=== PATIENT | female | born 1990 | race Caucasian/White ===

== ENCOUNTER 2018-12-14 07:30 | Day surgery (SDC) | payer BC ==
[~2018-12-14 07:30] MED LIST: Lactated Ringers 1,000 ML IV SCH; Lidocaine 1%/Sod Bicarbonate in NS 8.4% 1 ML Syringe IDERM PRN; Sodium Chloride 0.9% 10 ML Syringe FLUSH PRN
--- NOTE | 2018-12-14 07:57 | PCM.PREANE ---
Preanesthetic Assessment - Procedure Proposed Procedure: HYSTEROSCOPY - Anesthesia/Transfusion/Family Hx Anesthesia History: No Prior Anesthesia Family History of Anesthesia Reaction: No Transfusion History: No Prior Transfusion(s) - Review of Systems General: No Symptoms Pulmonary: No Symptoms Cardiovascular: No Symptoms Gastrointestinal: No Symptoms Neurological: No Symptoms Other: Reports: None - Physical Assessment NPO Status Date: 12/13/18 NPO Status Time: 21:00 O2 Sat by Pulse Oximetry: 100 Respiratory Rate: 16 Vital Signs: Last Vital Signs Temp 98.1 F 12/14/18 07:35 Pulse 74 12/14/18 07:35 Resp 16 12/14/18 07:35 BP 110/71 12/14/18 07:35 Pulse Ox 100 12/14/18 07:35 Height: 5 ft 4 in Weight: 52.4 kg ASA Class: 1 Mental Status: Alert & Oriented x3 Airway Class: Mallampati = 1 Dentition: Reports: Normal Dentition Thyro-Mental Finger Breadths: 3 Mouth Opening Finger Breadths: 3 ROM/Head Extension: Full Lungs: Clear to Auscultation, Normal Respiratory Effort Cardiovascular: Regular Rate, Regular Rhythm - Lab Values: Laboratory Last Values Urine HCG, Qual Negative (NEGATIVE) 12/14/18 07:35 - Allergies Allergies/Adverse Reactions: Allergies Allergy/AdvReac Type Severity Reaction Status Date / Time No Known Allergies Allergy Verified 12/13/18 15:16 - Blood Blood Available: No - Acknowledgements Anesthesia Type Planned: General Anesthesia, MAC Pt an Appropriate Candidate for the Planned Anesthesia: Yes Alternatives and Risks of Anesthesia Discussed w Pt/Guardian: Yes Pt/Guardian Understands and Agrees with Anesthesia Plan: Yes PreAnesthesia Questionnaire - Past Health History Medical/Surgical History: Denies Medical/Surgical History HEENT History: Reports: Impaired Vision Cardiovascular History: Reports: None Respiratory History: Reports: None Gastrointestinal History: Reports: None Oncologic (Cancer) History: Reports: None - SUBSTANCE USE Smoking Status *Q: Never Smoker Tobacco Use Within Last Twelve Months: No Second Hand Smoke Exposure: No Days Per Week of Alcohol Use: 1 (RARE) Recreational Drug Use History: No - HOME MEDS Home Medications: Home Meds Vits #93/Iron Fum/FA [ Formula Tablet] 1 tab PO DAILY 12/13/18 [History] - CURRENT (IN HOUSE) MEDS Current Meds: Current Medications Lactated Ringer's (Ringers, Lactated) 1,000 mls @ 125 mls/hr IV ASDIRECTED SABIHA Stop: 12/14/18 18:00 Lidocaine/Sodium Bicarbonate (Buffered Lidocaine 1% In Ns 8.4%) 0.25 ml IDERM ONETIME PRN PRN Reason: Prior to IV Start Stop: 12/14/18 18:00 Sodium Chloride (Saline Flush) 10 ml FLUSH ASDIRECTED PRN PRN Reason: Keep Vein Open Stop: 12/14/18 18:00
[2018-12-14] MEDS ORDERED: Lidocaine 1% 4 ML ONE (08:06)
[2018-12-14] MEDS ORDERED: Ondansetron 4 MG/2 ML SDV ONE (08:06)
[2018-12-14] MEDS ORDERED: Midazolam 1 MG/ML 2 ML SDV ONE (08:07)
[2018-12-14] MEDS ORDERED: Propofol 200 MG/20 ML SDV ONE ×2 (08:07→09:25)
[2018-12-14] MEDS ORDERED: fentaNYL 250 MCG/5 ML SDV ONE (08:07)
[2018-12-14] MEDS ORDERED: Lidocaine 1% 30 ML SDV ONE (08:23)
[2018-12-14] MEDS ORDERED: Iopamidol 612 MG/ML 50 ML SDV ONE (08:23)
[2018-12-14] MEDS ORDERED: Ketorolac 30 MG/ML SDV ONE (09:13)
[2018-12-14] MEDS ORDERED: ePHEDrine/Normal Saline 25 MG/5 ML Syringe ONE (09:17)
--- NOTE | 2018-12-14 09:51 | CR ---
Hysterosalpingogram: Seven fluoroscopic spot views were obtained utilizing C-arm device. Outline of the endometrial cavity is within normal limits. Minimal peritoneal spill is noted on the right side. No definite peritoneal spill is seen on the left side. Impression: 1. Findings as noted above. Diagnostic code #3
--- NOTE | 2018-12-14 09:54 | PCM48HPAN ---
Post Anesthesia Note - EVALUATION WITHIN 48HRS OF ANESTHETIC Vital Signs in Normal Range: Yes Patient Participated in Evaluation: Yes Respiratory Function Stable: Yes Airway Patent: Yes Cardiovascular Function Stable: Yes Hydration Status Stable: Yes Pain Control Satisfactory: Yes Nausea and Vomiting Control Satisfactory: Yes Mental Status Recovered: Yes Pulse Rate: 82 SaO2: 100 Resp Rate: 16 Temperature: 36.9 C Blood Pressure: 90/57 Pulse Rate: 82
--- NOTE | 2018-12-14 10:13 | PCM.OPNOTE ---
- General Post-Op/Procedure Note Date of Surgery/Procedure: 12/14/18 Operative Procedure(s): Attempted Hysteroscopy. HSG Findings: SVE with mobile, mid-positioned uterus. Cervix grossly normal on visual inspection. Unable to pass hysteroscope into uterine cavity. Webbing an additional tissue projections encountered in cervix and likely JAIME. Pre Op Diagnosis: Fertility testing Post-Op Diagnosis: Same Anesthesia Technique: MAC Primary Surgeon: Margie Vernon Anesthesia Provider: Lily Ngo Pathology: None Fluid Replacement, Intraop: 900 Output, Urine Amount: 0 (Voided prior to case) EBL in mLs: 10 Complications: None Condition: Good Free Text/Narrative:: The risks, benefits, indications, potential complications, and alternatives were explained to the patient and informed consent obtained. Patient was brought to the OR where anesthesia was induced without difficulty. She was placed in the dorsal lithotomy position and prepped and draped in the typical fashion. Sterile speculum placed in the vagina. Paracervical block placed with 1% lidocaine without epinephrine. Tenaculum placed on the anterior lip of the cervix. Attempt made to sound uterus, but unsuccessful due to tightening at the internal os. Bedside abdominal US utilized to visualize endometrial stripe and using this small Perez dilator able to be pushed into the uterine cavity. Uterus then able to be sequentially dilated up to a 19 Perez dilator relatively easily to what was felt to be level of fundus. Attempt was then made to pass a 5-mm hysteroscope, however, this was unsuccessful. Not able to make hysteroscope follow same path. Visualization with the hysteroscope showed webbing and tissue projections in the cervix and lower uterine segment. Given difficulties hysteroscope withdrawn and attempt then made to complete HSG. With gentle traction on the tenaculum, a cook catheter was advanced into the cervix and uterus. The speculum and tenaculum were removed. Next, ~30 cc of isoview contrast was injected through the catheter under direct fluoroscopy and several images were taken. Of note, a fair amount of force had to be placed on syringe to allow flow of contrast into the uterus. The uterus filled as did the left fallopian tube, however, left fallopian tube appeared dilated at several portions and no spill ever encountered . With much more force and after slightly longer time the right fallopian tube finally began to fill as well. Slight spill noted on this right side. Images sent to Radiology for formal interpretation. Once completed, the canula was removed. The patient was awoken and taken to PACU. Plan for course of doxycycline given no spill from left fallopian tube and only minimal spill from right fallopian tube. Will also need to coordinate further care with [facility]ESENIA team.
== END 2018-12-14 10:43 | disposition home or self-care (01) ==
LOC: JD.SDS 07:30
PROVIDERS: ATTEND Obstetrics & Gynecology
DX: Z31.41 Encounter for fertility testing (principal)
CPT/HCPCS: 36415; 58340; 58555; 74740; 80048; 81025; 85025; J1885; J2001; J2250; J2405; J2704; J3010; J7050; J7120; Q9967; 00952

== ENCOUNTER 2019-10-26 03:33 | Inpatient (IN) | payer BC ==
[~2019-10-26 03:33] MED LIST changes: +Bupivacaine 0.25% 10 ML SDV ONE; -Lactated Ringers 1,000 ML IV SCH; -Lidocaine 1%/Sod Bicarbonate in NS 8.4% 1 ML Syringe IDERM PRN; -Sodium Chloride 0.9% 10 ML Syringe FLUSH PRN
[2019-10-26] MEDS ORDERED: Misoprostol 100 MCG Tab VAG PRN (19:05)
[2019-10-26] MEDS ORDERED: Nalbuphine 10 MG/ML Syringe IVPUSH PRN (19:05)
[2019-10-26] MEDS ORDERED: Ondansetron 4 MG/2 ML SDV IVPUSH PRN (19:05)
[2019-10-26] MEDS ORDERED: Sodium Chloride 0.9% 10 ML Syringe FLUSH PRN (19:05)
--- NOTE | 2019-10-26 19:08 | PCM.LDHP ---
L&D History of Present Illness - General Date of Service: 10/26/19 Admit Problem/Dx: Patient Status Order with Admit Dx/Problem 10/26/19 19:05 Patient Status [ADT] Routine Admission Diagnosis/Problem Admission Diagnosis/Problem Normal in third trimester Source of Information: Patient History Limitations: Reports: No Limitations - History of Present Illness Introduction:: 28 y/o at 40 4/7 wks who presents for IOL. Doing well. Notes some runs of contractions. Nothing patterned. Notes good FM - Related Data Allergies/Adverse Reactions: Allergies Allergy/AdvReac Type Severity Reaction Status Date / Time No Known Allergies Allergy Verified 12/14/18 08:12 Home Medications: Home Meds Vits #93/Iron Fum/FA [ Formula Tablet] 1 tab PO DAILY 12/13/18 [History] Doxycycline [Vibramycin] 100 mg PO BID #10 cap 12/14/18 [Rx] Hydrocodone/Acetaminophen [[place] 5-325 Tablet] 1 - 2 each PO Q6HR PRN #10 tablet 12/14/18 [Rx] Past Medical History HEENT History: Reports: Impaired Vision - Past Surgical History Female Surgical History: Reports: Other (See Below) (hysteroscopy) Social & Family History - Tobacco Use Smoking Status *Q: Never Smoker - Caffeine Use Caffeine Use: Reports: Coffee - Alcohol Use Alcohol Use History: No - Recreational Drug Use Recreational Drug Use: No Drug Use in Last 12 Months: No H&P Review of Systems - Review of Systems: Review Of Systems: See Below General: Reports: No Symptoms Pulmonary: Reports: No Symptoms Cardiovascular: Reports: No Symptoms Gastrointestinal: Reports: No Symptoms Genitourinary: Reports: No Symptoms Musculoskeletal: Reports: No Symptoms Psychiatric: Reports: No Symptoms L&D Exam - Exam Exam: See Below - OB Specific Contraction Intensity: Irritability Movement: Active Heart Tones: Present Heart Tones per Min: 145 Heart Rate (FHR) Variability: Moderate (6-25 bmp) Presentation: Vertex - Fontaine Score Fontaine Score Cervix Position: Midposition Fontaine Score Consistency: Soft Fontaine Score Effacement: >80% Fontaine Score Dilation: 1-2 cm Fontaine Score 's Station: -2 Fontaine Score Total: 8 - Exam General: Alert, Oriented, Cooperative Lungs: Clear to Auscultation, Normal Respiratory Effort Cardiovascular: Regular Rate, Regular Rhythm GI/Abdominal Exam: Soft, Non-Tender Genitourinary: Normal external exam Extremities: Normal Inspection Skin: Warm, Dry, Intact - Patient Data Result Diagrams: 10/26/19 19:29 - Problem List (1) Postmaturity , 40-42 weeks gestation SNOMED Code(s): 10177221091352 ICD Code: O48.0 - POST-TERM Status: Acute Current Visit: Yes (2) Rh negative state in antepartum period SNOMED Code(s): 814525459 ICD Code: O26.899 - OTH RELATED CONDITIONS, UNSPECIFIED TRIMESTER; Z67.91 - UNSPECIFIED BLOOD TYPE, RH NEGATIVE Status: Acute Current Visit: Yes Problem List Initiated/Reviewed/Updated: Yes Orders Last 24hrs: Active Orders 24 hr Category Date Time Status Patient Status [ADT] Routine ADT 10/26/19 19:05 Ordered Activity as Tolerated [RC] PFP Care 10/26/19 19:05 Ordered Communication Order [RC] ASDIRECTED Care 10/26/19 19:05 Ordered Communication Order [RC] ASDIRECTED Care 10/26/19 19:05 Ordered Communication Order [RC] ASDIRECTED Care 10/26/19 19:05 Ordered Communication Order [RC] ASDIRECTED Care 10/26/19 19:05 Ordered Heart Tones [RC] ASDIRECTED Care 10/26/19 19:06 Ordered Monitoring [RC] INTERMITTENT Care 10/26/19 19:05 Ordered Non Stress Test [RC] PER UNIT ROUTINE Care 10/26/19 19:05 Ordered Notify Provider [RC] ASDIRECTED Care 10/26/19 19:05 Ordered Notify Provider [RC] PRN Care 10/26/19 19:05 Ordered Peripheral IV Care [RC] . DIRECTED Care 10/26/19 19:06 Ordered Vaginal Exam [RC] ASDIRECTED Care 10/26/19 19:05 Ordered Vital Signs [RC] ASDIRECTED Care 10/26/19 19:05 Ordered Regular Diet [DIET] Diet 10/26/19 Dinner Ordered CBC W/O DIFF,HEMOGRAM [HEME] Routine Lab 10/26/19 19:05 Ordered RAPID PLASMA REAGIN,RPR [CHEM] Routine Lab 10/26/19 19:05 Ordered TYPE AND SCREEN [BBK] Routine Lab 10/26/19 19:05 Ordered Lactated Ringers [Ringers, Lactated] 1,000 ml Med 10/26/19 19:15 Ordered IV ASDIRECTED Nalbuphine [Nubain] Med 10/26/19 19:05 Ordered 10 mg IVPUSH Q2H PRN Ondansetron [Zofran] Med 10/26/19 19:05 Ordered 4 mg IVPUSH Q4H PRN Oxytocin/Lactated Ringers [Pitocin in LR 10 Units/1,000 Med 10/26/19 19:15 Ordered ML] 10 unit in 1,000 ml IV .CONTINUOUS Oxytocin/Lactated Ringers [Pitocin in LR 10 Units/1,000 Med 10/26/19 19:15 Ordered ML] 10 unit in 1,000 ml IV TITRATE Sodium Chloride 0.9% [Saline Flush] Med 10/26/19 19:05 Ordered 10 ml FLUSH ASDIRECTED PRN miSOPROStoL [Cytotec] Med 10/26/19 19:05 Ordered 25 mcg VAG Q4H PRN Electronic Heart Tones Ext w TOCO [WOMSER] Oth 10/26/19 19:05 Ordered Routine Electronic Heart Tones Internal [WOMSER] Per Unit Oth 10/26/19 19:05 Ordered Routine Peripheral IV Insertion Adult [OM.PC] Routine Oth 10/26/19 19:05 Ordered Resuscitation Status Routine Resus Stat 10/26/19 19:05 Ordered Assessment/Plan Comment:: 28 y/o at 40 4/7 wks who presents for IOL for dates * Labs done * GBS negative * Cytotec for IOL, pitocin when able * Pain management per patient preference * Anticipate
[2019-10-26] MEDS ORDERED: Oxytocin/Lactated Ringers 10 UNIT/1,000 ML BAG IV SCH ×2 (19:15)
[2019-10-26] MEDS ORDERED: Misoprostol 25 MCG (1/4 of 100 MCG) Tab ONE (19:40)
[2019-10-26] MEDS ORDERED: fentaNYL 100 MCG/2 ML SDV EPIDUR PRN (21:16)
[2019-10-26] MEDS ORDERED: Bupivacaine/fentaNYL/NS 100 ML Bag EPIDUR PRN (21:16)
[2019-10-26] MEDS ORDERED: ePHEDrine 50 MG/ML SDV IVPUSH PRN (21:16)
[2019-10-26] MEDS ORDERED: diphenhydrAMINE 50 MG/ML SDV IVPUSH PRN (21:16)
[2019-10-26] MEDS: Lactated Ringers 1,000 ML IV SCH ×2 (22:36→23:48)
--- NOTE | 2019-10-26 23:20 | PCM.PREANE ---
Preanesthetic Assessment - Procedure Proposed Procedure: epidural - Anesthesia/Transfusion/Family Hx Anesthesia History: No Prior Anesthesia Family History of Anesthesia Reaction: No Transfusion History: No Prior Transfusion(s) - Review of Systems General: No Symptoms Pulmonary: No Symptoms Cardiovascular: No Symptoms Gastrointestinal: Abdominal Pain (labor) Neurological: No Symptoms Other: Reports: None - Physical Assessment Vital Signs: Last Vital Signs Temp 36.8 C 10/26/19 20:30 Pulse 81 10/26/19 20:30 Resp BP 118/74 10/26/19 20:30 Pulse Ox Height: 1.63 m Weight: 68.946 kg ASA Class: 2 Mental Status: Alert & Oriented x3 Airway Class: Mallampati = 1 Dentition: Reports: Normal Dentition Thyro-Mental Finger Breadths: 3 Mouth Opening Finger Breadths: 3 ROM/Head Extension: Full Lungs: Clear to Auscultation, Normal Respiratory Effort Cardiovascular: Regular Rate, Regular Rhythm - Lab Values: Laboratory Last Values WBC 10.54 K/mm3 (3.98-10.04) H 10/26/19 19:29 RBC 3.96 M/mm3 (3.98-5.22) L 10/26/19 19:29 Hgb 12.6 gm/dl (11.2-15.7) 10/26/19 19:29 Hct 37.7 % (34.1-44.9) 10/26/19 19:29 MCV 95.2 fl (79.4-94.8) H D 10/26/19 19:29 MCH 31.8 pg (25.6-32.2) 10/26/19 19:29 MCHC 33.4 g/dl (32.2-35.5) 10/26/19 19:29 RDW Std Deviation 45.5 fL (36.4-46.3) 10/26/19 19:29 Plt Count 201 K/mm3 (182-369) 10/26/19 19:29 MPV 11.0 fl (9.4-12.3) 10/26/19 19:29 RPR Non-reactive (NONREACTIVE) 10/26/19 19:29 - Allergies Allergies/Adverse Reactions: Allergies Allergy/AdvReac Type Severity Reaction Status Date / Time No Known Allergies Allergy Verified 10/26/19 21:31 - Anesthesia Plan Pre-Op Medication Ordered: None - Acknowledgements Anesthesia Type Planned: Epidural Pt an Appropriate Candidate for the Planned Anesthesia: Yes Alternatives and Risks of Anesthesia Discussed w Pt/Guardian: Yes Pt/Guardian Understands and Agrees with Anesthesia Plan: Yes PreAnesthesia Questionnaire - Past Health History Medical/Surgical History: Denies Medical/Surgical History HEENT History: Reports: Impaired Vision Other HEENT History: uses glasses Cardiovascular History: Reports: None Respiratory History: Reports: None Gastrointestinal History: Reports: None, GERD FATBACK 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 History: Reports: Polycystic Ovaries, , Other (See Below) Other OB/BYN History: hysteroscopy, HSG Oncologic (Cancer) History: Reports: None - Past Surgical History Female Surgical History: Reports: Other (See Below) (hysteroscopy) - SUBSTANCE USE Smoking Status *Q: Never Smoker Tobacco Use Within Last Twelve Months: No Second Hand Smoke Exposure: No Recreational Drug Use History: No - HOME MEDS Home Medications: Home Meds Vits #93/Iron Fum/FA [ Formula Tablet] 1 tab PO DAILY 12/13/18 [History] - CURRENT (IN HOUSE) MEDS Current Meds: Current Medications Diphenhydramine HCl (Benadryl) 25 mg IVPUSH Q6H PRN PRN Reason: Itching Ephedrine Sulfate (Ephedrine Sulfate) 5 mg IVPUSH ASDIRECTED PRN PRN Reason: HYPOTENTSION Fentanyl (Sublimaze) 100 mcg EPIDUR Q3H PRN PRN Reason: Pain Last Admin: 10/26/19 22:55 Dose: 100 mcg Fentanyl/Bupivacaine HCl (Fentanyl/Bupivacaine/Ns 2 Mcg-0.125% 100 Ml) 0 ml EPIDUR CONTINUOUS PRN PRN Reason: Pain Last Admin: 10/26/19 22:54 Dose: 100 ml Lactated Ringer's (Ringers, Lactated) 1,000 mls @ 40 mls/hr IV ASDIRECTED SABIHA Last Admin: 10/26/19 22:36 Dose: 999 mls/hr Oxytocin/Lactated Ringer's (Pitocin In Lr 10 Units/1,000 Ml) 10 unit in 1,000 mls @ 12 mls/hr IV TITRATE SABIHA; Protocol Oxytocin/Lactated Ringer's (Pitocin In Lr 10 Units/1,000 Ml) 10 unit in 1,000 mls @ 500 mls/hr IV .CONTINUOUS SABIHA Misoprostol (Cytotec) 25 mcg VAG Q4H PRN PRN Reason: cervical ripening Nalbuphine HCl (Nubain) 10 mg IVPUSH Q2H PRN PRN Reason: Pain Ondansetron HCl (Zofran) 4 mg IVPUSH Q4H PRN PRN Reason: Nausea/Vomiting Sodium Chloride (Saline Flush) 10 ml FLUSH ASDIRECTED PRN PRN Reason: Keep Vein Open Discontinued Medications Misoprostol (Cytotec) Confirm Administered Dose 25 mcg .ROUTE .sifonr-MED ONE Stop: 10/26/19 19:41 Last Admin: 10/26/19 19:45 Dose: 25 mcg
--- NOTE | 2019-10-27 03:50 | PCM.DEL ---
L & D Note - General Info Date of Service: 10/27/19 - Delivery Note Labor: Induced by Oxytocin Cervical Ripening Method: Misoprostil Delivery Outcome: Livebirth Delivery Method: Spontaneous Vaginal Delivery-Single Delivery Mode: Spontaneous Presentation: Right Occiput Anterior ([place]) Nuchal Cord: Present (delivered quickly and so not reduced) Anesthesia Type: Epidural Amniotic Fluid Description: Meconium Stained Episiotomy Type: None Laceration: 1st Degree, Vaginal Suture type: Vicryl Suture size: 2-0 Placenta: Intact, Spontaneous Cord: 3 Vessels Estimated Blood Loss: [address] [place]: Bulb Syringe, Stimulated, Warmed, [place] Used, Warmer Used Delivery Comments (Free Text/Narrative):: Patient found to be complete and began pushing. With maternal pushing effort head delivered from an [place] presentation. Nuchal cord present, but baby quickly delivered with maternal effort and so not reduced. Infant placed on maternal abdomen. Cord clamped and cut. Cord blood obtained. Placenta allowed time to separate and expelled intact. Inspection of the perineum showed a small 1st degree laceration which was repaired with a 2-0 vicryl with interrupted suture - General Info Date of Service: 10/27/19 - Patient Data Vitals - Most Recent: Last Vital Signs Temp 36.8 C 10/26/19 20:30 Pulse 81 10/26/19 20:30 Resp BP 118/74 10/26/19 20:30 Pulse Ox Weight - Most Recent: 68.946 kg - Problem List & Annotations (1) Postmaturity , 40-42 weeks gestation SNOMED Code(s): 68724665055480 Code(s): O48.0 - POST-TERM Status: Acute Current Visit: Yes (2) Rh negative state in antepartum period SNOMED Code(s): 365926801 Code(s): O26.899 - OTH RELATED CONDITIONS, UNSPECIFIED TRIMESTER; Z67.91 - UNSPECIFIED BLOOD TYPE, RH NEGATIVE Status: Acute Current Visit: Yes (3) Vaginal delivery SNOMED Code(s): 952302382 Code(s): O80 - ENCOUNTER FOR FULL-TERM UNCOMPLICATED DELIVERY Status: Acute Current Visit: Yes - Problem List Review Problem List Initiated/Reviewed/Updated: Yes - My Orders Last 24 Hours: My Active Orders 10/26/19 19:05 Patient Status [ADT] Routine Activity as Tolerated [RC] PFP Communication Order [RC] ASDIRECTED Communication Order [RC] ASDIRECTED Communication Order [RC] ASDIRECTED Communication Order [RC] ASDIRECTED Monitoring [RC] INTERMITTENT Non Stress Test [RC] PER UNIT ROUTINE Notify Provider [RC] ASDIRECTED Notify Provider [RC] PRN Vaginal Exam [RC] ASDIRECTED Vital Signs [RC] ASDIRECTED Nalbuphine [Nubain] 10 mg IVPUSH Q2H PRN Ondansetron [Zofran] 4 mg IVPUSH Q4H PRN Sodium Chloride 0.9% [Saline Flush] 10 ml FLUSH ASDIRECTED PRN miSOPROStoL [Cytotec] 25 mcg VAG Q4H PRN Electronic Heart Tones Ext w TOCO [WOMSER] Routine Electronic Heart Tones Internal [WOMSER] Per Unit Routine Peripheral IV Insertion Adult [OM.PC] Routine Resuscitation Status Routine 10/26/19 19:06 Heart Tones [RC] ASDIRECTED Peripheral IV Care [RC] . DIRECTED 10/26/19 19:15 Lactated Ringers [Ringers, Lactated] 1,000 ml IV ASDIRECTED Oxytocin/Lactated Ringers [Pitocin in LR 10 Units/1,000 ML] 10 unit in 1,000 ml IV .CONTINUOUS Oxytocin/Lactated Ringers [Pitocin in LR 10 Units/1,000 ML] 10 unit in 1,000 ml IV TITRATE 10/26/19 19:29 TYPE AND SCREEN [BBK] Routine 10/26/19 Dinner Regular Diet [DIET] - Assessment Assessment:: 28 y/o G1 now P1001 PPD#0 from at 40 5/7 wks - Plan Plan:: * Routine cares * Breast feeding * Discharge home in 1-2 days
[2019-10-27] MEDS ORDERED: Benzocaine/Menthol 20%-0.5% Spray 56 GM Canister TOP PRN (04:18)
[2019-10-27] MEDS ORDERED: Acetaminophen 325 MG Tab PO PRN (04:18)
[2019-10-27] MEDS ORDERED: Ibuprofen 600 MG Tab PO PRN (04:18)
[2019-10-27] MEDS ORDERED: Docusate Sodium 100 MG Cap PO PRN (04:18)
[2019-10-27] MEDS: Witch Hazel Medicated Pads 40/Jar TOP PRN (05:52)
--- NOTE | 2019-10-28 05:05 | PCM.PNPP ---
- General Info Date of Service: 10/28/19 Functional Status: Reports: Pain Controlled, Tolerating Diet, Ambulating, Urinating - Review of Systems General: Reports: No Symptoms Pulmonary: Reports: No Symptoms Cardiovascular: Reports: No Symptoms Gastrointestinal: Reports: No Symptoms Genitourinary: Reports: No Symptoms Musculoskeletal: Reports: No Symptoms Neurological: Reports: No Symptoms - Patient Data Vital Signs - Most Recent: Last Vital Signs Temp 36.8 C 10/28/19 03:49 Pulse 63 10/28/19 03:49 Resp 16 10/28/19 03:49 BP 108/73 10/28/19 03:49 Pulse Ox 97 10/28/19 03:49 Weight - Most Recent: 68.946 kg I&O - Last 24 Hours: Intake & Output 10/27/19 10/27/19 10/28/19 14:59 22:59 06:59 Intake Total 3240 Balance 3240 Lab Results - Last 24 Hours: Laboratory Results - last 24 hr 10/26/19 10/27/19 Range/Units 19:29 08:00 Blood Type A NEGATIVE Gel Antibody Screen Positive Screen 1 ros/5 flds - neg RhIG Candidate? Yes Med Orders - Current: Current Medications Acetaminophen (Tylenol) 650 mg PO Q4H PRN PRN Reason: mild pain or fever Benzocaine/Menthol (Dermoplast Pain Relief [place]) 0 gm TOP ASDIRECTED PRN PRN Reason: Perineal Comfort Measure Last Admin: 10/27/19 05:52 Dose: 1 can Docusate Sodium (Colace) 100 mg PO BID PRN PRN Reason: Constipation Ibuprofen (Motrin) 600 mg PO Q6H PRN PRN Reason: Mild pain or fever Witch Franchesca (Tucks) 1 pad TOP ASDIRECTED PRN PRN Reason: Perineal Comfort Measure Last Admin: 10/27/19 05:52 Dose: 1 jar Discontinued Medications Bupivacaine HCl (Sensorcaine-Mpf 0.25%) 10 ml .ROUTE .STK-MED ONE Stop: 10/26/19 00:01 Diphenhydramine HCl (Benadryl) 25 mg IVPUSH Q6H PRN PRN Reason: Itching Ephedrine Sulfate (Ephedrine Sulfate) 5 mg IVPUSH ASDIRECTED PRN PRN Reason: HYPOTENTSION Fentanyl (Sublimaze) 100 mcg EPIDUR Q3H PRN PRN Reason: Pain Last Admin: 10/26/19 22:55 Dose: 100 mcg Fentanyl/Bupivacaine HCl (Fentanyl/Bupivacaine/Ns 2 Mcg-0.125% 100 Ml) 0 ml EPIDUR CONTINUOUS PRN PRN Reason: Pain Last Admin: 10/26/19 22:54 Dose: 100 ml Lactated Ringer's (Ringers, Lactated) 1,000 mls @ 40 mls/hr IV ASDIRECTED SABIHA Last Admin: 10/26/19 23:48 Dose: 999 mls/hr Oxytocin/Lactated Ringer's (Pitocin In Lr 10 Units/1,000 Ml) 10 unit in 1,000 mls @ 12 mls/hr IV TITRATE SABIHA; Protocol Last Admin: 10/27/19 01:14 Dose: 2 munits/min, 12 mls/hr Oxytocin/Lactated Ringer's (Pitocin In Lr 10 Units/1,000 Ml) 10 unit in 1,000 mls @ 500 mls/hr IV .CONTINUOUS SABIHA Misoprostol (Cytotec) 25 mcg VAG Q4H PRN PRN Reason: cervical ripening Misoprostol (Cytotec) Confirm Administered Dose 25 mcg .ROUTE .K-MED ONE Stop: 10/26/19 19:41 Last Admin: 10/26/19 19:45 Dose: 25 mcg Nalbuphine HCl (Nubain) 10 mg IVPUSH Q2H PRN PRN Reason: Pain Ondansetron HCl (Zofran) 4 mg IVPUSH Q4H PRN PRN Reason: Nausea/Vomiting Sodium Chloride (Saline Flush) 10 ml FLUSH ASDIRECTED PRN PRN Reason: Keep Vein Open - Interaction Infant Disposition, : [place] in Room with Family Interaction: Holding Infant Infant Feeding: Breastfed ; Nursed Well Support Person: - Recovery Exam Fundal Tone: Firm Fundal Level: 1 Fingerbreadths Below Umbilicus Fundal Placement: Midline Lochia Amount: Scant Lochia Color: [place] Perineum Description: Intact, Minimal Bruising/Swelling Episiotomy/Laceration: Approximated Bladder Status: Voiding Urinary Elimination: Voided - Exam General: Alert, Oriented, Cooperative GI/Abdominal Exam: Soft, Non-Tender Extremities: Normal Inspection Skin: Warm, Dry, Intact - Problem List & Annotations (1) Postmaturity , 40-42 weeks gestation SNOMED Code(s): 18014844415818 Code(s): O48.0 - POST-TERM Status: Acute Current Visit: Yes (2) Rh negative state in antepartum period SNOMED Code(s): 352215383 Code(s): O26.899 - OTH RELATED CONDITIONS, UNSPECIFIED TRIMESTER; Z67.91 - UNSPECIFIED BLOOD TYPE, RH NEGATIVE Status: Acute Current Visit: Yes (3) Vaginal delivery SNOMED Code(s): 591810379 Code(s): O80 - ENCOUNTER FOR FULL-TERM UNCOMPLICATED DELIVERY Status: Acute Current Visit: Yes - Problem List Review Problem List Initiated/Reviewed/Updated: Yes - My Orders Last 24 Hours: My Active Orders 10/27/19 04:18 Activity as Tolerated [RC] PER UNIT ROUTINE Vital Signs [RC] 09,15,21,03 Acetaminophen [Tylenol] 650 mg PO Q4H PRN Benzocaine/Menthol [Dermoplast Pain Relief [place]] See Dose Instructions TOP ASDIRECTED PRN Docusate Sodium [Colace] 100 mg PO BID PRN Ibuprofen [Motrin] 600 mg PO Q6H PRN Witch [place] [Tucks] 1 pad TOP ASDIRECTED PRN Assess Lochia [WOMSER] Per Unit Routine Assess Uterine Involution [WOMSER] Per Unit Routine Breast Pump [WOMSER] Per Unit Routine Heat Therapy [OM.PC] PRN Ice Therapy [OM.PC] Per Unit Routine Perineal Care [OM.PC] Per Unit Routine Peripheral IV Discontinue [OM.PC] Routine Sitz Bath [OM.PC] Per Unit Routine 10/27/19 Breakfast Regular Diet [DIET] 10/28/19 04:18 Heat Therapy [OM.PC] PRN - Assessment Assessment:: 28 y/o G1 now P1001 PPD#1 from at 40 5/7 wks - Plan Plan:: * Routine cares * Breast feeding * Rhogam today as baby Rh positive * Discharge home today
--- NOTE | 2019-10-28 05:34 | PCM.DCSUM1 ---
Discharge Summary - Discharge Data Discharge Date: 10/28/19 Discharge Disposition: Home, Self-Care 01 Condition: Good - Referral to Home Health Primary Care Physician: Margie Vernon MD - Discharge Diagnosis/Problem(s) (1) Postmaturity , 40-42 weeks gestation SNOMED Code(s): 90400512348937 ICD Code: O48.0 - POST-TERM Status: Acute Current Visit: Yes (2) Rh negative state in antepartum period SNOMED Code(s): 492682044 ICD Code: O26.899 - OTH RELATED CONDITIONS, UNSPECIFIED TRIMESTER; Z67.91 - UNSPECIFIED BLOOD TYPE, RH NEGATIVE Status: Acute Current Visit: Yes (3) Vaginal delivery SNOMED Code(s): 224164438 ICD Code: O80 - ENCOUNTER FOR FULL-TERM UNCOMPLICATED DELIVERY Status: Acute Current Visit: Yes - Patient Summary/Data Complications: None Consults: None Recommended Follow-up Testing/Procedures: Follow up in 3 weeks for check Hospital Course: 28 y/o presented at 40 4/7 wks for IOL. This was done with cytotec and small duration of pitocin. Made rapid change to complete dilation and underwent an uncomplicated . See delivery note. did well and was discharged home on PPD#1 - Patient Instructions Diet: Regular Diet as Tolerated Activity: As Tolerated Activity, Other: Pelvic rest for 6 weeks Driving: May Drive Today Showering/Bathing: May Shower Showering/Bathing, Other: May Bathe Notify Provider of: Fever, Increased Pain, Swelling and Redness, Drainage, Nausea and/or Vomiting - Discharge Plan *PRESCRIPTION DRUG MONITORING PROGRAM REVIEWED*: No *COPY OF PRESCRIPTION DRUG MONITORING REPORT IN PATIENT MARTELL: No Home Medications: Home Meds Vits #93/Iron Fum/FA [ Formula Tablet] 1 tab PO DAILY 12/13/18 [History] Acetaminophen [Tylenol] 650 mg PO Q4H PRN tablet 10/27/19 [Rx] Docusate Sodium [Colace] 100 mg PO BID PRN cap 10/27/19 [Rx] Ibuprofen [Motrin] 600 mg PO Q6H PRN tablet 10/27/19 [Rx] Patient Handouts: Vaginal Delivery, Care After Referrals: Margie Vernon MD [Primary Care Provider] - (3 weeks for check ) - Discharge Summary/Plan Comment DC Time >30 min.: No - Patient Data Vitals - Most Recent: Last Vital Signs Temp 36.6 C 10/28/19 05:32 Pulse 62 10/28/19 05:32 Resp 16 10/28/19 05:32 BP 110/72 10/28/19 05:32 Pulse Ox 97 10/28/19 03:49 Weight - Most Recent: 68.946 kg I&O - Last 24 hours: Intake & Output 10/27/19 10/27/19 10/28/19 14:59 22:59 06:59 Intake Total 3240 1 Balance 3240 1 Lab Results - Last 24 hrs: Laboratory Results - last 24 hr 10/26/19 10/27/19 Range/Units 19:29 08:00 Blood Type A NEGATIVE Gel Antibody Screen Positive Screen 1 ros/5 flds - neg RhIG Candidate? Yes Med Orders - Current: Current Medications Acetaminophen (Tylenol) 650 mg PO Q4H PRN PRN Reason: mild pain or fever Benzocaine/Menthol (Dermoplast Pain Relief [place]) 0 gm TOP ASDIRECTED PRN PRN Reason: Perineal Comfort Measure Last Admin: 10/27/19 05:52 Dose: 1 can Docusate Sodium (Colace) 100 mg PO BID PRN PRN Reason: Constipation Ibuprofen (Motrin) 600 mg PO Q6H PRN PRN Reason: Mild pain or fever Witch Franchesca (Tucks) 1 pad TOP ASDIRECTED PRN PRN Reason: Perineal Comfort Measure Last Admin: 10/27/19 05:52 Dose: 1 jar Discontinued Medications Bupivacaine HCl (Sensorcaine-Mpf 0.25%) 10 ml .ROUTE .STK-MED ONE Stop: 10/26/19 00:01 Diphenhydramine HCl (Benadryl) 25 mg IVPUSH Q6H PRN PRN Reason: Itching Ephedrine Sulfate (Ephedrine Sulfate) 5 mg IVPUSH ASDIRECTED PRN PRN Reason: HYPOTENTSION Fentanyl (Sublimaze) 100 mcg EPIDUR Q3H PRN PRN Reason: Pain Last Admin: 10/26/19 22:55 Dose: 100 mcg Fentanyl/Bupivacaine HCl (Fentanyl/Bupivacaine/Ns 2 Mcg-0.125% 100 Ml) 0 ml EPIDUR CONTINUOUS PRN PRN Reason: Pain Last Admin: 10/26/19 22:54 Dose: 100 ml Lactated Ringer's (Ringers, Lactated) 1,000 mls @ 40 mls/hr IV ASDIRECTED SABIHA Last Admin: 10/26/19 23:48 Dose: 999 mls/hr Oxytocin/Lactated Ringer's (Pitocin In Lr 10 Units/1,000 Ml) 10 unit in 1,000 mls @ 12 mls/hr IV TITRATE SABIHA; Protocol Last Admin: 10/27/19 01:14 Dose: 2 munits/min, 12 mls/hr Oxytocin/Lactated Ringer's (Pitocin In Lr 10 Units/1,000 Ml) 10 unit in 1,000 mls @ 500 mls/hr IV .CONTINUOUS [facility] Misoprostol (Cytotec) 25 mcg VAG Q4H PRN PRN Reason: cervical ripening Misoprostol (Cytotec) Confirm Administered Dose 25 mcg .ROUTE .[facility] ONE Stop: 10/26/19 19:41 Last Admin: 10/26/19 19:45 Dose: 25 mcg Nalbuphine HCl (Nubain) 10 mg IVPUSH Q2H PRN PRN Reason: Pain Ondansetron HCl (Zofran) 4 mg IVPUSH Q4H PRN PRN Reason: Nausea/Vomiting Sodium Chloride (Saline Flush) 10 ml FLUSH ASDIRECTED PRN PRN Reason: Keep Vein Open
[2019-10-28] MEDS: Witch Hazel Medicated Pads 40/Jar TOP PRN (05:37)
== END 2019-10-28 10:55 | disposition home or self-care (01) | DRG 560 ==
LOC: JD.OB 03:33 → OBSVTOIN 10-27 03:33 → JD.OB 10-27 03:34
PROVIDERS: ADMIT Obstetrics & Gynecology; ATTEND Obstetrics & Gynecology
PROC: 10E0XZZ Delivery of Products of Conception, External Approach (ICD-10-PCS; principal; 2019-10-27)
PROC: 3E0P7VZ Introduction of Hormone into Female Reproductive, Via Natural or Artificial Opening (ICD-10-PCS; 2019-10-27)
PROC: 3E033VJ Introduction of Other Hormone into Peripheral Vein, Percutaneous Approach (ICD-10-PCS; 2019-10-27)
PROC: 10907ZC Drainage of Amniotic Fluid, Therapeutic from Products of Conception, Via Natural or Artificial Opening (ICD-10-PCS; 2019-10-27)
PROC: 0HQ9XZZ Repair Perineum Skin, External Approach (ICD-10-PCS; 2019-10-27)
PROC: 3E0R3BZ Introduction of Anesthetic Agent into Spinal Canal, Percutaneous Approach (ICD-10-PCS; 2019-10-27)
PROC: 3E0334Z Introduction of Serum, Toxoid and Vaccine into Peripheral Vein, Percutaneous Approach (ICD-10-PCS; 2019-10-27)
DX: O48.0 Post-term pregnancy (principal); Z67.91 Unspecified blood type, Rh negative; Z3A.40 40 weeks gestation of pregnancy; Z37.0 Single live birth; O70.0 First degree perineal laceration during delivery; O77.0 Labor and delivery complicated by meconium in amniotic fluid; O69.81X0 Labor and delivery complicated by cord around neck, without compression, not applicable or unspecified
CPT/HCPCS: 01967; 36415; 51702; 59025; 59409; 85027; 85461; 86592; 86850; 86870; 86900; 86901; A9270-GY; J2590; J2790; J3010; J3490; J7120

== ENCOUNTER 2021-09-07 07:02 | Inpatient (IN) | payer BC ==
[2021-09-07] MEDS ORDERED: Nalbuphine 10 MG/1 ML Vial IVPUSH PRN (07:27)
[2021-09-07] MEDS ORDERED: Oxytocin/Lactated Ringers 10 UNIT/1,000 ML BAG IV SCH ×2 (07:30)
--- NOTE | 2021-09-07 07:31 | PCM.LDHP ---
L&D History of Present Illness - General Date of Service: 09/07/21 Admit Problem/Dx: Patient Status Order with Admit Dx/Problem 09/07/21 07:28 Patient Status [ADT] Routine Admission Diagnosis/Problem Admission Diagnosis/Problem Normal in third trimester Source of Information: Patient History Limitations: Reports: No Limitations - History of Present Illness Introduction:: Patient is a 30 y/o at 40 3/7 wks who presents for IOL. Doing well. No particular contractions or concerns. 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: Polycystic Ovaries, : 2 Para: 1 LMP (Approximate): - Past Surgical History Female Surgical History: Reports: Other (See Below) (hysteroscopy) Social & Family History - Family History Family Medical History: No Pertinent Family History - Tobacco Use Tobacco Use Status *Q: Never Tobacco User - Caffeine Use Caffeine Use: Reports: Coffee - Alcohol Use Alcohol Use History: No - Recreational Drug Use Recreational Drug Use: No H&P Review of Systems - Review of Systems: Review Of Systems: See Below General: Reports: No Symptoms Pulmonary: Reports: No Symptoms Cardiovascular: Reports: No Symptoms Gastrointestinal: Reports: No Symptoms Genitourinary: Reports: No Symptoms Musculoskeletal: Reports: No Symptoms Psychiatric: Reports: No Symptoms Neurological: Reports: No Symptoms L&D Exam - Exam Exam: See Below - OB Specific Contraction Intensity: Irritability Movement: Active Heart Tones: Present Heart Tones per Min: 125 Heart Rate (FHR) Variability: Moderate (6-25 bpm) Presentation: Vertex - Fontaine Score Fontaine Score Cervix Position: Posterior Fontaine Score Consistency: Medium Fontaine Score Effacement: 31-50% Fontaine Score Dilation: 1-2 cm Fontaine Score 's Station: -3 Fontaine Score Total: 3 - Exam General: Alert, Oriented, Cooperative Lungs: Clear to Auscultation, Normal Respiratory Effort Cardiovascular: Regular Rate, Regular Rhythm GI/Abdominal Exam: Soft, Non-Tender Genitourinary: Normal external exam Extremities: Normal Inspection Skin: Warm, Dry, Intact - Patient Data Result Diagrams: 09/07/21 07:38 - Problem List (1) Postmaturity , 40-42 weeks gestation SNOMED Code(s): 22435427599107 ICD Code: O48.0 - POST-TERM Status: Acute Current Visit: No (2) Rh negative state in antepartum period SNOMED Code(s): 205971158 ICD Code: O26.899 - OTH RELATED CONDITIONS, UNSPECIFIED TRIMESTER; Z67.91 - UNSPECIFIED BLOOD TYPE, RH NEGATIVE Status: Acute Current Visit: No Problem List Initiated/Reviewed/Updated: Yes Orders Last 24hrs: Active Orders 24 hr Category Date Time Status Patient Status [ADT] Routine ADT 09/07/21 07:28 Ordered Activity as Tolerated [RC] PFP Care 09/07/21 07:28 Ordered Communication Order [RC] ASDIRECTED Care 09/07/21 07:28 Ordered Communication Order [RC] ASDIRECTED Care 09/07/21 07:28 Ordered Communication Order [RC] ASDIRECTED Care 09/07/21 07:28 Ordered Heart Tones [RC] ASDIRECTED Care 09/07/21 07:29 Ordered Non Stress Test [RC] PER UNIT ROUTINE Care 09/07/21 07:28 Ordered Notify Provider [RC] ASDIRECTED Care 09/07/21 07:28 Ordered Notify Provider [RC] PRN Care 09/07/21 07:28 Ordered Peripheral IV Care [RC] . DIRECTED Care 09/07/21 07:29 Ordered Up ad Jazmin [RC] ASDIRECTED Care 09/07/21 07:29 Ordered Vaginal Exam [RC] ASDIRECTED Care 09/07/21 07:28 Ordered Vital Signs [RC] ASDIRECTED Care 09/07/21 07:28 Ordered Regular Diet [DIET] Diet 09/07/21 Breakfast Ordered CBC W/O DIFF,HEMOGRAM [HEME] Routine Lab 09/07/21 07:27 Ordered CORONAVIRUS COVID-19 FRANCISCO [MOLEC] Stat Lab 09/07/21 07:30 Ordered RAPID PLASMA REAGIN,RPR [CHEM] Routine Lab 09/07/21 07:28 Ordered TYPE AND SCREEN [BBK] Routine Lab 09/07/21 07:27 Ordered Lactated Ringers [Ringers, Lactated] 1,000 ml Med 09/07/21 07:30 Ordered IV ASDIRECTED Nalbuphine [Nubain] Med 09/07/21 07:27 Ordered 10 mg IVPUSH Q2H PRN Ondansetron [Zofran] Med 09/07/21 07:27 Ordered 4 mg IVPUSH Q4H PRN Oxytocin/Lactated Ringers [Pitocin in LR 10 Units/1,000 Med 09/07/21 07:30 Ordered ML] 10 unit in 1,000 ml IV .CONTINUOUS Oxytocin/Lactated Ringers [Pitocin in LR 10 Units/1,000 Med 09/07/21 07:30 Ordered ML] 10 unit in 1,000 ml IV TITRATE Sodium Chloride 0.9% [Saline Flush] Med 09/07/21 09:00 Ordered 10 ml FLUSH 0900,2100 Electronic Heart Tones Ext w TOCO [WOMSER] Oth 09/07/21 07:28 Ordered Routine Electronic Heart Tones Internal [WOMSER] Per Unit Oth 09/07/21 07:28 Ordered Routine Peripheral IV Insertion Adult [OM.PC] Routine Oth 09/07/21 07:28 Ordered Resuscitation Status Routine Resus Stat 09/07/21 07:27 Ordered Assessment/Plan Comment:: * Labs to be done * GBS negative * Pitocin for IOL. AROM when able * Pain management per patient preference * Anticipate
[2021-09-07] MEDS: Lactated Ringers 1,000 ML IV SCH ×4 (08:08→15:52)
[2021-09-07] MEDS ORDERED: Sodium Chloride 0.9% 10 ML Syringe FLUSH SCH (09:00)
[2021-09-07] MEDS ORDERED: fentaNYL 100 MCG/2 ML SDV EPIDUR PRN (10:21)
[2021-09-07] MEDS ORDERED: Ondansetron 4 MG/2 ML SDV IVPUSH PRN (10:21)
[2021-09-07] MEDS ORDERED: ePHEDrine 50 MG/ML SDV IVPUSH PRN (10:21)
--- NOTE | 2021-09-07 10:24 | PCM.PREANE ---
Preanesthetic Assessment - Procedure Proposed Procedure: Epidural - Anesthesia/Transfusion/Family Hx Anesthesia History: Prior Anesthesia Without Reaction Family History of Anesthesia Reaction: No Transfusion History: No Prior Transfusion(s) Intubation History: Unknown - Review of Systems General: No Symptoms Pulmonary: No Symptoms Cardiovascular: No Symptoms Gastrointestinal: No Symptoms (GERD with ) Neurological: No Symptoms (Motion sickness) Other: Reports: None - Physical Assessment NPO Status Date: 09/07/21 NPO Status Time: 12:00 Vital Signs: Last Vital Signs Temp 36.7 C 09/07/21 07:20 Pulse 84 09/07/21 07:20 Resp 16 09/07/21 07:20 BP 104/69 09/07/21 07:20 Pulse Ox 100 09/07/21 07:20 Height: 1.63 m Weight: 66.224 kg ASA Class: 2 Mental Status: Alert & Oriented x3 Airway Class: Mallampati = 2 Dentition: Reports: Normal Dentition, Caries Thyro-Mental Finger Breadths: 3 Mouth Opening Finger Breadths: 3 ROM/Head Extension: Full Lungs: Clear to Auscultation, Normal Respiratory Effort Cardiovascular: Regular Rate, Regular Rhythm - Lab Values: Laboratory Last Values WBC 8.37 K/mm3 (3.98-10.04) 09/07/21 07:38 RBC 3.82 M/mm3 (3.98-5.22) L 09/07/21 07:38 Hgb 12.2 gm/dl (11.2-15.7) 09/07/21 07:38 Hct 36.5 % (34.1-44.9) 09/07/21 07:38 MCV 95.5 fl (79.4-94.8) H 09/07/21 07:38 MCH 31.9 pg (25.6-32.2) 09/07/21 07:38 MCHC 33.4 g/dl (32.2-35.5) 09/07/21 07:38 RDW Std Deviation 44.5 fL (36.4-46.3) 09/07/21 07:38 Plt Count 202 K/mm3 (182-369) 09/07/21 07:38 MPV 9.9 fl (9.4-12.3) 09/07/21 07:38 SARS-CoV-2 RNA (FRANCISCO) Negative (NEGATIVE) 09/07/21 07:20 Blood Type A NEGATIVE 09/07/21 07:38 Gel Antibody Screen Positive 09/07/21 07:38 Above labs reviewed and noted and within acceptable ranges to proceed with epidural if desired. - Allergies Allergies/Adverse Reactions: Allergies Allergy/AdvReac Type Severity Reaction Status Date / Time No Known Allergies Allergy Verified 09/07/21 08:44 - Anesthesia Plan Pre-Op Medication Ordered: None - Acknowledgements Anesthesia Type Planned: Epidural Pt an Appropriate Candidate for the Planned Anesthesia: Yes Alternatives and Risks of Anesthesia Discussed w Pt/Guardian: Yes Pt/Guardian Understands and Agrees with Anesthesia Plan: Yes PreAnesthesia Questionnaire - Past Health History Medical/Surgical History: Denies Medical/Surgical History HEENT History: Reports: Impaired Vision Other HEENT History: Wears glasses/contacts Cardiovascular History: Reports: None Respiratory History: Reports: None Gastrointestinal History: Reports: GERD 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: 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 Ovaries, , Other (See Below) Other OB/BYN History: Hysteroscopy Oncologic (Cancer) History: Reports: None - Infectious Disease History Infectious Disease History: Reports: Chicken Pox, Novel Coronavirus - Past Surgical History Female Surgical History: Reports: Other (See Below) (hysteroscopy) - SUBSTANCE USE Tobacco Use Status *Q: Never Tobacco User Recreational Drug Use History: No - HOME MEDS Home Medications: Home Meds Doxylamine Succinate [Unisom] 25 mg PO DAILY 09/07/21 [History] Ondansetron [Zofran Odt] 8 mg PO Q8H PRN 09/07/21 [History] No122/Iron/Folic Acid [ Multi Tablet] 1 each PO DAILY 09/07/21 [History] Vitamin B6-pyridOXINE 100 mg PO DAILY 09/07/21 [History] - CURRENT (IN HOUSE) MEDS Current Meds: Current Medications Ephedrine Sulfate (Ephedrine 50 Mg/Ml Sdv) 5 mg IVPUSH ASDIRECTED PRN PRN Reason: Hypotension Fentanyl (Fentanyl 100 Mcg/2 Ml Sdv) 100 mcg EPIDUR Q3H PRN PRN Reason: Pain Fentanyl/Bupivacaine HCl (Bupivacaine/Fentanyl/Ns 100 Ml Bag) 100 ml EPIDUR ASDIRECTED SABIHA Oxytocin/Lactated Ringer's (Pitocin In Lr 10 Units/1,000 Ml) 10 unit in 1,000 mls @ 12 mls/hr IV TITRATE SABIHA; Protocol Last Titration: 09/07/21 10:10 Dose: 10 munits/min, 60 mls/hr Documented by: Oxytocin/Lactated Ringer's (Pitocin In Lr 10 Units/1,000 Ml) 10 unit in 1,000 mls @ 500 mls/hr IV .CONTINUOUS SABIHA Lactated Ringer's (Ringers, Lactated) 1,000 mls @ 40 mls/hr IV ASDIRECTED [facility] Last Admin: 09/07/21 08:08 Dose: 40 mls/hr Documented by: Miscellaneous Medication (Phenylephrine Hcl In 0.9% Nacl 1 Mg/10 Ml Syringe) 0.1 mg IVPUSH Q10M PRN PRN Reason: Hypotension Nalbuphine HCl (Nalbuphine 10 Mg/1 Ml Vial) 10 mg IVPUSH Q2H PRN PRN Reason: Pain Ondansetron HCl (Ondansetron 4 Mg/2 Ml Sdv) 4 mg IVPUSH Q4H PRN PRN Reason: Nausea/Vomiting Ondansetron HCl (Ondansetron 4 Mg/2 Ml Sdv) 4 mg IVPUSH ONETIME PRN PRN Reason: Nausea/Vomiting Sodium Chloride (Sodium Chloride 0.9% 10 Ml Syringe) 10 ml FLUSH 0900,2100 [facility] Last Admin: 09/07/21 09:37 Dose: Not Given Documented by:
[2021-09-07] MEDS ORDERED: Bupivacaine/fentaNYL/NS 100 ML Bag EPIDUR SCH (10:30)
[2021-09-07] MEDS ORDERED: Bupivacaine 0.25% 10 ML SDV ONE (10:30)
--- NOTE | 2021-09-07 12:43 | PCM.PNLD ---
Labor Progress Note - VS & Meds Vital Signs: Last Vital Signs Temp 36.7 C 09/07/21 07:20 Pulse 84 09/07/21 07:20 Resp 16 09/07/21 07:20 BP 104/69 09/07/21 07:20 Pulse Ox 100 09/07/21 07:20 Active Medications: Current Medications Ephedrine Sulfate (Ephedrine 50 Mg/Ml Sdv) 5 mg IVPUSH ASDIRECTED PRN PRN Reason: Hypotension Fentanyl (Fentanyl 100 Mcg/2 Ml Sdv) 100 mcg EPIDUR Q3H PRN PRN Reason: Pain Fentanyl/Bupivacaine HCl (Bupivacaine/Fentanyl/Ns 100 Ml Bag) 100 ml EPIDUR ASDIRECTED SABIHA Oxytocin/Lactated Ringer's (Pitocin In Lr 10 Units/1,000 Ml) 10 unit in 1,000 mls @ 12 mls/hr IV TITRATE SABIHA; Protocol Last Titration: 09/07/21 11:45 Dose: 12 munits/min, 72 mls/hr Documented by: Oxytocin/Lactated Ringer's (Pitocin In Lr 10 Units/1,000 Ml) 10 unit in 1,000 mls @ 500 mls/hr IV .CONTINUOUS SABIHA Lactated Ringer's (Ringers, Lactated) 1,000 mls @ 40 mls/hr IV ASDIRECTED SABIHA Last Admin: 09/07/21 08:08 Dose: 40 mls/hr Documented by: Miscellaneous Medication (Phenylephrine Hcl In 0.9% Nacl 1 Mg/10 Ml Syringe) 0.1 mg IVPUSH Q10M PRN PRN Reason: Hypotension Nalbuphine HCl (Nalbuphine 10 Mg/1 Ml Vial) 10 mg IVPUSH Q2H PRN PRN Reason: Pain Ondansetron HCl (Ondansetron 4 Mg/2 Ml Sdv) 4 mg IVPUSH Q4H PRN PRN Reason: Nausea/Vomiting Ondansetron HCl (Ondansetron 4 Mg/2 Ml Sdv) 4 mg IVPUSH ONETIME PRN PRN Reason: Nausea/Vomiting Sodium Chloride (Sodium Chloride 0.9% 10 Ml Syringe) 10 ml FLUSH 0900,2100 SABIHA Last Admin: 09/07/21 09:37 Dose: Not Given Documented by: - Uterine Contractions Uterine Monitoring Mode: External [place] Contraction Intensity: Mild to Moderate - Monitoring Monitor Mode: External Ultrasound Heart Rate (FHR) Baseline: 140 Heart Rate (FHR) Variability: Moderate (6-25 bpm) Accelerations: Present, 10x10 (=/<32 wks) Decelerations: None Strip Review: Category I - Vaginal Exam Dilation (cm): 3 Effacement (Percent): 50 Station: -2 Cervical Position: Posterior - Labor Progress (Free Text) Labor Progress: Doing well. pitocin at 12. AROM performed. Continue present managemetn
[2021-09-07] MEDS: Ondansetron 4 MG/2 ML SDV IVPUSH PRN ×2 (15:10→19:08)
--- NOTE | 2021-09-07 15:33 | PCM.PNLD ---
Labor Progress Note - VS & Meds Vital Signs: Last Vital Signs Temp 36.7 C 09/07/21 07:20 Pulse 84 09/07/21 07:20 Resp 16 09/07/21 07:20 BP 104/69 09/07/21 07:20 Pulse Ox 100 09/07/21 07:20 Active Medications: Current Medications Ephedrine Sulfate (Ephedrine 50 Mg/Ml Sdv) 5 mg IVPUSH ASDIRECTED PRN PRN Reason: Hypotension Fentanyl (Fentanyl 100 Mcg/2 Ml Sdv) 100 mcg EPIDUR Q3H PRN PRN Reason: Pain Last Admin: 09/07/21 14:30 Dose: 100 mcg Documented by: Fentanyl/Bupivacaine HCl (Bupivacaine/Fentanyl/Ns 100 Ml Bag) 100 ml EPIDUR ASDIRECTED SABIHA Last Admin: 09/07/21 14:30 Dose: 100 ml Documented by: Oxytocin/Lactated Ringer's (Pitocin In Lr 10 Units/1,000 Ml) 10 unit in 1,000 mls @ 12 mls/hr IV TITRATE SABIHA; Protocol Last Titration: 09/07/21 13:16 Dose: 16 munits/min, 96 mls/hr Documented by: Oxytocin/Lactated Ringer's (Pitocin In Lr 10 Units/1,000 Ml) 10 unit in 1,000 mls @ 500 mls/hr IV .CONTINUOUS SABIHA Lactated Ringer's (Ringers, Lactated) 1,000 mls @ 40 mls/hr IV ASDIRECTED SABIHA Last Admin: 09/07/21 15:05 Dose: 40 mls/hr Documented by: Miscellaneous Medication (Phenylephrine Hcl In 0.9% Nacl 1 Mg/10 Ml Syringe) 0.1 mg IVPUSH Q10M PRN PRN Reason: Hypotension Nalbuphine HCl (Nalbuphine 10 Mg/1 Ml Vial) 10 mg IVPUSH Q2H PRN PRN Reason: Pain Ondansetron HCl (Ondansetron 4 Mg/2 Ml Sdv) 4 mg IVPUSH Q4H PRN PRN Reason: Nausea/Vomiting Last Admin: 09/07/21 15:10 Dose: 4 mg Documented by: Ondansetron HCl (Ondansetron 4 Mg/2 Ml Sdv) 4 mg IVPUSH ONETIME PRN PRN Reason: Nausea/Vomiting Sodium Chloride (Sodium Chloride 0.9% 10 Ml Syringe) 10 ml FLUSH 0900,2100 SABIHA Last Admin: 09/07/21 09:37 Dose: Not Given Documented by: - Uterine Contractions Uterine Monitoring Mode: External [place] Contraction Intensity: Moderate to Strong - Monitoring Monitor Mode: External Ultrasound Heart Rate (FHR) Baseline: 115 Heart Rate (FHR) Variability: Moderate (6-25 bpm) Accelerations: Present, 10x10 (=/<32 wks) Decelerations: Variable Strip Review: Category II - Vaginal Exam Dilation (cm): 5 Effacement (Percent): 90 Station: 0 Cervical Position: Anterior - Labor Progress (Free Text) Labor Progress: Doing well. On 16 of pitocin. Comfortable with epidural. Just had several large variables into the 60's. Pitocin decreased to 10. Patient repositioned. Will continue to monitor closely.
[2021-09-07] MEDS ORDERED: ceFAZolin 2 GM in Sodium Chloride 0.9% 50 ML IV ONE (17:44)
--- NOTE | 2021-09-07 17:44 | PCM.DEL ---
L & D Note - General Info Date of Service: 09/07/21 - Delivery Note Labor: Induced by ARM, Induced by Oxytocin Delivery Outcome: Livebirth Infant Delivery Method: Spontaneous Vaginal Delivery-Single Presentation: Left Occiput Anterior (NITA) Nuchal Cord: None Anesthesia Type: Epidural Amniotic Fluid Description: Clear Episiotomy Type: None Laceration: None Placenta: Intact, Spontaneous, Manual Removal Cord: 3 Vessels Estimated Blood Loss: 200 Resuscitation Needed: Yes : Bulb Syringe, Stimulated, Warmed, [place] Used, Warmer Used Delivery Comments (Free Text/Narrative):: Patient found to be complete and began pushing. With maternal pushing effort head delivered from NITA presentation. No nuchal cord present. With gentle downward traction shoulders and body delivered. placed on maternal abdomen. Cord clamped and cut. Cord blood obtained. Placenta allowed time to separate, but did not release. After 25-30 minutes manual exploration done. Placenta able to be removed with some effort, but appeared intact. One final sweep/exploration of uterus did not reveal further placental fragments. Patient given dose of ancef for findings. No lacerations noted. - General Info Date of Service: 09/07/21 - Patient Data Vitals - Most Recent: Last Vital Signs Temp 36.7 C 09/07/21 07:20 Pulse 84 09/07/21 07:20 Resp 16 09/07/21 07:20 BP 104/69 09/07/21 07:20 Pulse Ox 100 09/07/21 07:20 Weight - Most Recent: 66.224 kg I&O - Last 24 Hours: Intake & Output 09/07/21 09/07/21 09/07/21 06:59 14:59 22:59 Intake Total 1000 2000 Output Total 700 Balance 1000 1300 - Exam Urinary Catheter Total Time: 0Days 1Hours - Problem List & Annotations (1) Postmaturity , 40-42 weeks gestation SNOMED Code(s): 29553544880635 Code(s): O48.0 - POST-TERM Status: Acute Current Visit: No (2) Rh negative state in antepartum period SNOMED Code(s): 562305124 Code(s): O26.899 - OTH RELATED CONDITIONS, UNSPECIFIED TRIMESTER; Z67.91 - UNSPECIFIED BLOOD TYPE, RH NEGATIVE Status: Acute Current Visit: No (3) Vaginal delivery SNOMED Code(s): 332465303 Code(s): O80 - ENCOUNTER FOR FULL-TERM UNCOMPLICATED DELIVERY Status: Acute Current Visit: No (4) Retained placenta SNOMED Code(s): 799667464 Code(s): O73.0 - RETAINED PLACENTA WITHOUT HEMORRHAGE Status: Acute Current Visit: Yes Qualifiers: Retained placenta detail: complete placenta Qualified Code(s): O73.0 - Retained placenta without hemorrhage - Problem List Review Problem List Initiated/Reviewed/Updated: Yes - My Orders Last 24 Hours: My Active Orders 09/07/21 Breakfast Regular Diet [DIET] 09/07/21 07:27 Nalbuphine [Nubain] 10 mg IVPUSH Q2H PRN Ondansetron [Zofran] 4 mg IVPUSH Q4H PRN Resuscitation Status Routine 09/07/21 07:28 Patient Status [ADT] Routine Activity as Tolerated [RC] PFP Communication Order [RC] ASDIRECTED Communication Order [RC] ASDIRECTED Communication Order [RC] ASDIRECTED Notify Provider [RC] ASDIRECTED Notify Provider [RC] PRN Electronic Heart Tones Ext w TOCO [WOMSER] Routine Electronic Heart Tones Internal [WOMSER] Per Unit Routine Peripheral IV Insertion Adult [OM.PC] Routine 09/07/21 07:29 Up ad Jazmin [RC] ASDIRECTED 09/07/21 07:30 Lactated Ringers [Ringers, Lactated] 1,000 ml IV ASDIRECTED Oxytocin/Lactated Ringers [Pitocin in LR 10 Units/1,000 ML] 10 unit in 1,000 ml IV .CONTINUOUS Oxytocin/Lactated Ringers [Pitocin in LR 10 Units/1,000 ML] 10 unit in 1,000 ml IV TITRATE 09/07/21 07:38 ANTIBODY IDENTIFICATION [BBK] Routine RAPID PLASMA REAGIN,RPR [CHEM] Routine TYPE AND SCREEN [BBK] Routine 09/07/21 09:00 Sodium Chloride 0.9% [Saline Flush] 10 ml FLUSH 0900,2100 - Assessment Assessment:: PPD#0 - Plan Plan:: * Routine cares * Breast feeding * Assess baby blood type following delivery * Discharge home in 1-2 days
[2021-09-07] MEDS ORDERED: Benzocaine/Menthol 20%-0.5% Spray 78 GM Cannister TOP PRN (19:15)
[2021-09-07] MEDS ORDERED: Docusate Sodium 100 MG Cap PO PRN (19:15)
[2021-09-07] MEDS ORDERED: Ibuprofen 600 MG Tab PO PRN (19:15)
[2021-09-07] MEDS ORDERED: Acetaminophen 325 MG Tab PO PRN (19:15)
[2021-09-07] MEDS ORDERED: Witch Hazel Medicated Pads 40/Jar TOP PRN (19:15)
--- NOTE | 2021-09-08 07:10 | PCM.DCSUM1 ---
Discharge Summary - Discharge Data Discharge Date: 09/08/21 Discharge Disposition: Home, Self-Care 01 Condition: Good - Referral to Home Health Primary Care Physician: Margie Vernon MD - Discharge Diagnosis/Problem(s) (1) Postmaturity , 40-42 weeks gestation SNOMED Code(s): 81263373588237 ICD Code: O48.0 - POST-TERM Status: Acute (2) Rh negative state in antepartum period SNOMED Code(s): 700897421 ICD Code: O26.899 - OTH RELATED CONDITIONS, UNSPECIFIED TRIMESTER; Z67.91 - UNSPECIFIED BLOOD TYPE, RH NEGATIVE Status: Acute (3) Vaginal delivery SNOMED Code(s): 668651184 ICD Code: O80 - ENCOUNTER FOR FULL-TERM UNCOMPLICATED DELIVERY Status: Acute (4) Retained placenta SNOMED Code(s): 711246448 ICD Code: O73.0 - RETAINED PLACENTA WITHOUT HEMORRHAGE Status: Acute Qualifiers: Retained placenta detail: complete placenta Qualified Code(s): O73.0 - Retained placenta without hemorrhage - Patient Summary/Data Complications: None Consults: None Recommended Follow-up Testing/Procedures: Follow up in 3 weeks for check Hospital Course: 30 y/o at 40 3/7 wks who presented for IOL. Done with pitocin and AROM. Progressed well to complete dilation. Underwent uncomplicated . See delivery note. did well and was discharged home on PPD#1 - Patient Instructions Diet: Regular Diet as Tolerated Activity: As Tolerated Activity, Other: Pelvic rest for 6 weeks Driving: May Drive Today Showering/Bathing: May Shower Showering/Bathing, Other: May Bathe Notify Provider of: Fever, Increased Pain, Swelling and Redness, Drainage, Nausea and/or Vomiting - Discharge Plan *PRESCRIPTION DRUG MONITORING PROGRAM REVIEWED*: Not Applicable *COPY OF PRESCRIPTION DRUG MONITORING REPORT IN PATIENT MARTELL: Not Applicable Home Medications: Home Meds No122/Iron/Folic Acid [ Multi Tablet] 1 each PO DAILY 09/07/21 [History] Acetaminophen [Tylenol] 650 mg PO Q4H PRN tablet 09/08/21 [Rx] Docusate Sodium [Colace] 100 mg PO BID PRN cap 09/08/21 [Rx] Ibuprofen [Motrin] 600 mg PO Q6H PRN tablet 09/08/21 [Rx] Patient Handouts: Tips for a Good Latch, [place]-uf-Feip, Care After Vaginal Delivery Referrals: Margie Vernon MD [Primary Care Provider] - (3 weeks for check ) - Discharge Summary/Plan Comment DC Time >30 min.: No Total # of Minutes for Discharge Time: 15 - Patient Data Vitals - Most Recent: Last Vital Signs Temp 36.3 C 09/08/21 03:58 Pulse 68 09/08/21 03:58 Resp 16 09/08/21 03:58 BP 92/61 09/08/21 03:58 Pulse Ox 99 09/08/21 03:58 Weight - Most Recent: 66.224 kg I&O - Last 24 hours: Intake & Output 09/07/21 09/08/21 09/08/21 22:59 06:59 14:59 Intake Total 5054 Output Total 808 34 Balance 4246 -34 Lab Results - Last 24 hrs: Laboratory Results - last 24 hr 09/07/21 09/07/21 09/07/21 Range/Units 07:20 07:38 07:38 WBC 8.37 (3.98-10.04) K/mm3 RBC 3.82 L (3.98-5.22) M/mm3 Hgb 12.2 (11.2-15.7) gm/dl Hct 36.5 (34.1-44.9) % MCV 95.5 H (79.4-94.8) fl MCH 31.9 (25.6-32.2) pg MCHC 33.4 (32.2-35.5) g/dl RDW Std Deviation 44.5 (36.4-46.3) fL Plt Count 202 (182-369) K/mm3 MPV 9.9 (9.4-12.3) fl RPR (NONREACTIVE) SARS-CoV-2 RNA (FRANCISCO) Negative (NEGATIVE) Blood Type A NEGATIVE Gel Antibody Screen Positive Screen RhIG Candidate? Rhogam Indicated 09/07/21 09/07/21 Range/Units 07:38 19:00 WBC (3.98-10.04) K/mm3 RBC (3.98-5.22) M/mm3 Hgb (11.2-15.7) gm/dl Hct (34.1-44.9) % MCV (79.4-94.8) fl MCH (25.6-32.2) pg MCHC (32.2-35.5) g/dl RDW Std Deviation (36.4-46.3) fL Plt Count (182-369) K/mm3 MPV (9.4-12.3) fl RPR Non-reactive (NONREACTIVE) SARS-CoV-2 RNA (FRANCISCO) (NEGATIVE) Blood Type Cancelled Gel Antibody Screen Cancelled Screen 2 ros/5 flds - neg RhIG Candidate? Yes Rhogam Indicated Cancelled Med Orders - Current: Current Medications Acetaminophen (Acetaminophen 325 Mg Tab) 650 mg PO Q4H PRN PRN Reason: mild pain or fever Benzocaine/Menthol (Benzocaine/Menthol 20%-0.5% [place] 78 Gm Cannister) 0 gm TOP ASDIRECTED PRN PRN Reason: Perineal Comfort Measure Last Admin: 09/07/21 19:53 Dose: 1 can Documented by: Docusate Sodium (Docusate Sodium 100 Mg Cap) 100 mg PO BID PRN PRN Reason: Constipation Ibuprofen (Ibuprofen 600 Mg Tab) 600 mg PO Q6H PRN PRN Reason: Mild pain or fever Witch Franchesca (Witch Franchesca Medicated Pads 40/Jar) 1 pad TOP ASDIRECTED PRN PRN Reason: Perineal Comfort Measure Last Admin: 09/07/21 19:53 Dose: 1 tub Documented by: Discontinued Medications Ephedrine Sulfate (Ephedrine 50 Mg/Ml Sdv) 5 mg IVPUSH ASDIRECTED PRN PRN Reason: Hypotension Fentanyl (Fentanyl 100 Mcg/2 Ml Sdv) 100 mcg EPIDUR Q3H PRN PRN Reason: Pain Last Admin: 09/07/21 14:30 Dose: 100 mcg Documented by: Fentanyl/Bupivacaine HCl (Bupivacaine/Fentanyl/Ns 100 Ml Bag) 100 ml EPIDUR ASDIRECTED SABIHA Last Admin: 09/07/21 14:30 Dose: 100 ml Documented by: Oxytocin/Lactated Ringer's (Pitocin In Lr 10 Units/1,000 Ml) 10 unit in 1,000 mls @ 12 mls/hr IV TITRATE SABIHA; Protocol Last Titration: 09/07/21 17:12 Dose: 166.5 munits/min, 999 mls/hr Documented by: Oxytocin/Lactated Ringer's (Pitocin In Lr 10 Units/1,000 Ml) 10 unit in 1,000 mls @ 500 mls/hr IV .CONTINUOUS [facility] Last Admin: 09/07/21 17:48 Dose: 500 mls/hr Documented by: Lactated Ringer's (Ringers, Lactated) 1,000 mls @ 40 mls/hr IV ASDIRECTED [facility] Last Admin: 09/07/21 15:52 Dose: 40 mls/hr Documented by: Cefazolin Sodium 2 gm/ Sodium (Chloride) 50 mls @ 100 mls/hr IV ONETIME ONE Stop: 09/07/21 18:13 Last Admin: 09/07/21 20:02 Dose: Not Given Documented by: Cefazolin Sodium/Dextrose (Ancef) 50 mls @ 50 mls/hr IV NOW ONE Stop: 09/07/21 18:59 Last Admin: 09/07/21 18:20 Dose: 50 mls/hr Documented by: Miscellaneous Medication (Phenylephrine Hcl In 0.9% Nacl 1 Mg/10 Ml Syringe) 0.1 mg IVPUSH Q10M PRN PRN Reason: Hypotension Nalbuphine HCl (Nalbuphine 10 Mg/1 Ml Vial) 10 mg IVPUSH Q2H PRN PRN Reason: Pain Ondansetron HCl (Ondansetron 4 Mg/2 Ml Sdv) 4 mg IVPUSH Q4H PRN PRN Reason: Nausea/Vomiting Last Admin: 09/07/21 19:08 Dose: 4 mg Documented by: Ondansetron HCl (Ondansetron 4 Mg/2 Ml Sdv) 4 mg IVPUSH ONETIME PRN PRN Reason: Nausea/Vomiting Sodium Chloride (Sodium Chloride 0.9% 10 Ml Syringe) 10 ml FLUSH 0900,2100 [facility] Last Admin: 09/07/21 09:37 Dose: Not Given Documented by:
--- NOTE | 2021-09-08 07:10 | PCM.PNPP ---
- General Info Date of Service: 09/08/21 Functional Status: Reports: Pain Controlled, Tolerating Diet, Ambulating, Urinating - Review of Systems General: Reports: No Symptoms Pulmonary: Reports: No Symptoms Cardiovascular: Reports: No Symptoms Gastrointestinal: Reports: No Symptoms Genitourinary: Reports: No Symptoms Musculoskeletal: Reports: No Symptoms Neurological: Reports: No Symptoms - General Info Date of Service: 09/08/21 - Patient Data Vital Signs - Most Recent: Last Vital Signs Temp 36.3 C 09/08/21 03:58 Pulse 68 09/08/21 03:58 Resp 16 09/08/21 03:58 BP 92/61 09/08/21 03:58 Pulse Ox 99 09/08/21 03:58 Weight - Most Recent: 66.224 kg I&O - Last 24 Hours: Intake & Output 09/07/21 09/08/21 09/08/21 22:59 06:59 14:59 Intake Total 5054 Output Total 808 34 Balance 4246 -34 Lab Results - Last 24 Hours: Laboratory Results - last 24 hr 09/07/21 09/07/21 09/07/21 Range/Units 07:20 07:38 07:38 WBC 8.37 (3.98-10.04) K/mm3 RBC 3.82 L (3.98-5.22) M/mm3 Hgb 12.2 (11.2-15.7) gm/dl Hct 36.5 (34.1-44.9) % MCV 95.5 H (79.4-94.8) fl MCH 31.9 (25.6-32.2) pg MCHC 33.4 (32.2-35.5) g/dl RDW Std Deviation 44.5 (36.4-46.3) fL Plt Count 202 (182-369) K/mm3 MPV 9.9 (9.4-12.3) fl RPR (NONREACTIVE) SARS-CoV-2 RNA ([place]) Negative (NEGATIVE) Blood Type A NEGATIVE Gel Antibody Screen Positive Screen RhIG Candidate? Rhogam Indicated 09/07/21 09/07/21 Range/Units 07:38 19:00 WBC (3.98-10.04) K/mm3 RBC (3.98-5.22) M/mm3 Hgb (11.2-15.7) gm/dl Hct (34.1-44.9) % MCV (79.4-94.8) fl MCH (25.6-32.2) pg MCHC (32.2-35.5) g/dl RDW Std Deviation (36.4-46.3) fL Plt Count (182-369) K/mm3 MPV (9.4-12.3) fl RPR Non-reactive (NONREACTIVE) SARS-CoV-2 RNA ([place]) (NEGATIVE) Blood Type Cancelled Gel Antibody Screen Cancelled Screen 2 ros/5 flds - neg RhIG Candidate? Yes Rhogam Indicated Cancelled Med Orders - Current: Current Medications Acetaminophen (Acetaminophen 325 Mg Tab) 650 mg PO Q4H PRN PRN Reason: mild pain or fever Benzocaine/Menthol (Benzocaine/Menthol 20%-0.5% Juda 78 Gm Cannister) 0 gm TOP ASDIRECTED PRN PRN Reason: Perineal Comfort Measure Last Admin: 09/07/21 19:53 Dose: 1 can Documented by: Docusate Sodium (Docusate Sodium 100 Mg Cap) 100 mg PO BID PRN PRN Reason: Constipation Ibuprofen (Ibuprofen 600 Mg Tab) 600 mg PO Q6H PRN PRN Reason: Mild pain or fever Witch Rj (Witch Rj Medicated Pads 40/Jar) 1 pad TOP ASDIRECTED PRN PRN Reason: Perineal Comfort Measure Last Admin: 09/07/21 19:53 Dose: 1 tub Documented by: Discontinued Medications Ephedrine Sulfate (Ephedrine 50 Mg/Ml Sdv) 5 mg IVPUSH ASDIRECTED PRN PRN Reason: Hypotension Fentanyl (Fentanyl 100 Mcg/2 Ml Sdv) 100 mcg EPIDUR Q3H PRN PRN Reason: Pain Last Admin: 09/07/21 14:30 Dose: 100 mcg Documented by: Fentanyl/Bupivacaine HCl (Bupivacaine/Fentanyl/Ns 100 Ml Bag) 100 ml EPIDUR ASDIRECTED SABIHA Last Admin: 09/07/21 14:30 Dose: 100 ml Documented by: Oxytocin/Lactated Ringer's (Pitocin In Lr 10 Units/1,000 Ml) 10 unit in 1,000 mls @ 12 mls/hr IV TITRATE SABIHA; Protocol Last Titration: 09/07/21 17:12 Dose: 166.5 munits/min, 999 mls/hr Documented by: Oxytocin/Lactated Ringer's (Pitocin In Lr 10 Units/1,000 Ml) 10 unit in 1,000 mls @ 500 mls/hr IV .CONTINUOUS [facility] Last Admin: 09/07/21 17:48 Dose: 500 mls/hr Documented by: Lactated Ringer's (Ringers, Lactated) 1,000 mls @ 40 mls/hr IV ASDIRECTED [facility] Last Admin: 09/07/21 15:52 Dose: 40 mls/hr Documented by: Cefazolin Sodium 2 gm/ Sodium (Chloride) 50 mls @ 100 mls/hr IV ONETIME ONE Stop: 09/07/21 18:13 Last Admin: 09/07/21 20:02 Dose: Not Given Documented by: Cefazolin Sodium/Dextrose (Ancef) 50 mls @ 50 mls/hr IV NOW ONE Stop: 09/07/21 18:59 Last Admin: 09/07/21 18:20 Dose: 50 mls/hr Documented by: Miscellaneous Medication (Phenylephrine Hcl In 0.9% Nacl 1 Mg/10 Ml Syringe) 0.1 mg IVPUSH Q10M PRN PRN Reason: Hypotension Nalbuphine HCl (Nalbuphine 10 Mg/1 Ml Vial) 10 mg IVPUSH Q2H PRN PRN Reason: Pain Ondansetron HCl (Ondansetron 4 Mg/2 Ml Sdv) 4 mg IVPUSH Q4H PRN PRN Reason: Nausea/Vomiting Last Admin: 09/07/21 19:08 Dose: 4 mg Documented by: Ondansetron HCl (Ondansetron 4 Mg/2 Ml Sdv) 4 mg IVPUSH ONETIME PRN PRN Reason: Nausea/Vomiting Sodium Chloride (Sodium Chloride 0.9% 10 Ml Syringe) 10 ml FLUSH 0900,2100 [facility] Last Admin: 09/07/21 09:37 Dose: Not Given Documented by: - Infant Interaction Disposition, : [place] in Room with Family Infant Interaction: Holding Infant Infant Feeding: Breastfed Infant; Nursed Well Support Person: - Recovery Exam Fundal Tone: Firm Fundal Level: 1 Fingerbreadths Below Umbilicus Fundal Placement: Midline Lochia Amount: Small Lochia Color: Rubra/Red Perineum Description: Intact, Minimal Bruising/Swelling Episiotomy/Laceration: None Bladder Status: Voiding Urinary Elimination: Voided - Exam General: Alert, Oriented, Cooperative GI/Abdominal Exam: Soft, Non-Tender - Problem List & Annotations (1) Postmaturity , 40-42 weeks gestation SNOMED Code(s): 70486064242829 Code(s): O48.0 - POST-TERM Status: Acute (2) Rh negative state in antepartum period SNOMED Code(s): 975417610 Code(s): O26.899 - OTH RELATED CONDITIONS, UNSPECIFIED TRIMESTER; Z67.91 - UNSPECIFIED BLOOD TYPE, RH NEGATIVE Status: Acute (3) Vaginal delivery SNOMED Code(s): 671379709 Code(s): O80 - ENCOUNTER FOR FULL-TERM UNCOMPLICATED DELIVERY Status: Acute (4) Retained placenta SNOMED Code(s): 479450546 Code(s): O73.0 - RETAINED PLACENTA WITHOUT HEMORRHAGE Status: Acute Qualifiers: Retained placenta detail: complete placenta Qualified Code(s): O73.0 - Retained placenta without hemorrhage - Problem List Review Problem List Initiated/Reviewed/Updated: Yes - My Orders Last 24 Hours: My Active Orders 09/07/21 07:27 Resuscitation Status Routine 09/07/21 07:38 ANTIBODY IDENTIFICATION [BBK] Routine TYPE AND SCREEN [BBK] Routine 09/07/21 Dinner Regular Diet [DIET] 09/07/21 19:15 Acetaminophen [TylenoL] 650 mg PO Q4H PRN Benzocaine/Menthol [Dermoplast Pain Relief 20%-0.5% Juda] See Dose Instructions TOP ASDIRECTED PRN Docusate Sodium [Colace] 100 mg PO BID PRN Ibuprofen [Motrin] 600 mg PO Q6H PRN witch Rj [Tucks] 1 pad TOP ASDIRECTED PRN Heat Therapy [OM.PC] PRN 09/07/21 19:15 Activity as Tolerated [RC] PER UNIT ROUTINE Vital Signs [RC] 03,09,15,21 Assess Lochia [WOMSER] Per Unit Routine Assess Uterine Involution [WOMSER] Per Unit Routine Breast Pump [WOMSER] Per Unit Routine Ice Therapy [OM.PC] Per Unit Routine Perineal Care [OM.PC] Per Unit Routine Peripheral IV Discontinue [OM.PC] Routine Sitz Bath [OM.PC] Per Unit Routine 09/08/21 07:09 Ready for Discharge [RC] PER UNIT ROUTINE 09/08/21 19:15 Heat Therapy [OM.PC] PRN - Assessment Assessment:: PPD#1 - Plan Plan:: * Routine cares * Breast feeding * Baby Rh positive, s/p Rhogam * Discharge home today
--- NOTE | 2021-09-08 10:54 | PCM48HPAN ---
Post Anesthesia Note - EVALUATION WITHIN 48HRS OF ANESTHETIC Vital Signs in Normal Range: Yes Patient Participated in Evaluation: Yes Respiratory Function Stable: Yes Airway Patent: Yes Cardiovascular Function Stable: Yes Hydration Status Stable: Yes Pain Control Satisfactory: Yes Nausea and Vomiting Control Satisfactory: Yes Mental Status Recovered: Yes Vital Signs: Last Vital Signs Temp 97.5 F 09/08/21 08:19 Pulse 79 09/08/21 08:19 Resp 16 09/08/21 08:19 BP 113/88 09/08/21 08:19 Pulse Ox 100 09/08/21 08:19 - COMMENTS/OBSERVATIONS Free Text/Narrative:: Patient resting in bed holding baby when visiting with patient. Patient stated that she was "very happy" with her epidural and labor experience. Patient complained of mild back pain in epidural placement site but is controlled and has not gotten worse. Discussed signs and symptoms of infection, post-dural puncture headaches, post- depression, and if patient experiences increased back discomfort. Encouraged patient if any of those signs or symptoms develop to contact OB/Anesthesia so the patient can be treated accordingly if needed. Patient verbalized understanding. Patient did not voice any questions or concerns at this time. Concha Hampton, CLAIMS AUDITOR
== END 2021-09-08 18:20 | disposition home or self-care (01) | DRG 560 ==
LOC: JD.OB 07:02 → OBSVTOIN 17:11 → JD.OB 17:11
PROVIDERS: ADMIT Obstetrics & Gynecology; ATTEND Obstetrics & Gynecology
PROC: 10E0XZZ Delivery of Products of Conception, External Approach (ICD-10-PCS; principal; 2021-09-07)
PROC: 10907ZC Drainage of Amniotic Fluid, Therapeutic from Products of Conception, Via Natural or Artificial Opening (ICD-10-PCS; 2021-09-07)
PROC: 3E033VJ Introduction of Other Hormone into Peripheral Vein, Percutaneous Approach (ICD-10-PCS; 2021-09-07)
PROC: 3E0R3BZ Introduction of Anesthetic Agent into Spinal Canal, Percutaneous Approach (ICD-10-PCS; 2021-09-07)
DX: O48.0 Post-term pregnancy (principal); Z3A.40 40 weeks gestation of pregnancy; Z37.0 Single live birth; O73.0 Retained placenta without hemorrhage; Z20.822 Contact with and (suspected) exposure to COVID-19
CPT/HCPCS: 01967; 36415; 51702; 59025; 59409; 85027; 85461; 86592; 86850; 86870; 86900; 86901; A9270-GY; J0690; J2405; J2590; J2790; J3010; J3490; J7120; U0002

== ENCOUNTER 2024-04-16 22:39 | Inpatient (IN) | payer BC ==
[2024-04-16] MEDS: Lactated Ringers 1,000 ML IV SCH (22:40)
[2024-04-16] MEDS ORDERED: Lidocaine 1% 50 ML MDV INJECT PRN (23:11)
[2024-04-16] MEDS ORDERED: Sodium Chloride 0.9% 10 ML Syringe FLUSH PRN (23:11)
[2024-04-16] MEDS ORDERED: Nalbuphine 10 MG/ML Syringe IVPUSH PRN (23:11)
[2024-04-16] MEDS ORDERED: Acetaminophen 325 MG Tab PO PRN (23:11)
[2024-04-16] MEDS ORDERED: Ondansetron 4 MG/2 ML SDV IVPUSH PRN (23:11)
[2024-04-16 23:25] LABS: BASOPHILS PERCENT AUTO 0.3 % (0.0-1.0); EOSINOPHILS ABSOLUTE AUTO 0.3 K/mm3 (0.0-0.4); EOSINOPHILS PERCENT AUTO 2.2 % (0.0-6.0); HEMATOCRIT 37.4 % (37.0-47.0); HEMOGLOBIN 12.7 gm/dl (12.0-16.0); IMMATURE GRAN ABSOLUTE AUTO 0.08 K/mm3 (0.00-0.05); IMMATURE GRAN PERCENT AUTO 0.7 % (0.0-0.4); LYMPHOCYTES ABSOLUTE AUTO 1.6 K/mm3 (1.0-4.8); MEAN CORPUSCULAR VOLUME 94.2 fl (83.0-99.0); MEAN PLATELET VOLUME 9.9 fl (9.4-12.3); MONOCYTES ABSOLUTE AUTO 0.8 K/mm3 (0.0-0.8); MONOCYTES PERCENT AUTO 6.5 % (0.0-8.0); NEUTROPHILS ABSOLUTE AUTO 8.8 K/mm3 (1.8-7.7); NEUTROPHILS PERCENT AUTO 76.3 % (41.0-71.0); PLATELET COUNT,PLT 208 K/mm3 (150-400); RED BLOOD CELL COUNT 3.97 M/mm3 (4.10-5.30); WHITE BLOOD CELL COUNT,WBC 11.61 K/mm3 (3.9-11.3)
[2024-04-16] MEDS ORDERED: Bupivacaine/fentaNYL/NS 100 ML Bag EPIDUR PRN (23:49)
[2024-04-16] MEDS ORDERED: ePHEDrine 50 MG/ML SDV IVPUSH PRN (23:49)
[2024-04-16] MEDS ORDERED: diphenhydrAMINE 50 MG/ML SDV IVPUSH PRN (23:49)
[2024-04-16] MEDS ORDERED: fentaNYL 100 MCG/2 ML SDV EPIDUR PRN (23:49)
[2024-04-17] MEDS ORDERED: Lidocaine 1.5% with EPINEPHrine 1:200,000 5 ML Amp ONE
[2024-04-17] MEDS: Oxytocin/0.9 % Sodium Chloride 30 UNIT/500 ML BAG IV SCH (05:38)
[2024-04-17] MEDS ORDERED: Acetaminophen 325 MG Tab PO PRN (06:49)
[2024-04-17] MEDS ORDERED: Docusate Sodium 100 MG Cap PO PRN (06:49)
[2024-04-17] MEDS ORDERED: Hydrocortisone Acetate 25 MG Supp RECTAL PRN (06:49)
[2024-04-17] MEDS ORDERED: Oxytocin/Lactated Ringers 30 UNIT/500 ML BAG IV SCH (06:49)
[2024-04-17] MEDS ORDERED: Magnesium Hydroxide 400 MG/5 ML Susp 30 ML Cup PO PRN (06:49)
[2024-04-17] MEDS: Ibuprofen 600 MG Tab PO SCH (07:38)
[2024-04-17] MEDS: Witch Hazel Medicated Pads 40/Jar TOP PRN (07:40)
[2024-04-17] MEDS: Benzocaine/Menthol 20%-0.5% Spray 78 GM Cannister TOP PRN (07:40)
[2024-04-17] MEDS ORDERED: Sodium Chloride 0.9% 10 ML Syringe FLUSH SCH (09:00)
[2024-04-17] MEDS: Prenatal Multivitamin with Calcium/Folic Acid/Iron Tab PO SCH (13:35)
== END 2024-04-18 12:30 | disposition home or self-care (01) | DRG 560 ==
LOC: JD.OBCHECK 22:39 → JD.OB 22:42 → JD.OBCHECK 22:44 → JD.OB 22:45 → OBSVTOIN 04-17 05:36 → JD.OB 04-17 05:37
PROVIDERS: ADMIT Obstetrics & Gynecology; ATTEND Obstetrics & Gynecology
PROC: 10E0XZZ Delivery of Products of Conception, External Approach (ICD-10-PCS; principal; 2024-04-17)
PROC: 10907ZC Drainage of Amniotic Fluid, Therapeutic from Products of Conception, Via Natural or Artificial Opening (ICD-10-PCS; 2024-04-17)
PROC: 0HQ9XZZ Repair Perineum Skin, External Approach (ICD-10-PCS; 2024-04-17)
PROC: 3E0R3BZ Introduction of Anesthetic Agent into Spinal Canal, Percutaneous Approach (ICD-10-PCS; 2024-04-17)
PROC: 00HU33Z Insertion of Infusion Device into Spinal Canal, Percutaneous Approach (ICD-10-PCS; 2024-04-17)
DX: O26.893 Other specified pregnancy related conditions, third trimester (principal); Z67.11 Type A blood, Rh negative; O76 Abnormality in fetal heart rate and rhythm complicating labor and delivery; Z3A.40 40 weeks gestation of pregnancy; Z37.0 Single live birth; O69.81X0 Labor and delivery complicated by cord around neck, without compression, not applicable or unspecified; O70.0 First degree perineal laceration during delivery
CPT/HCPCS: 36415; 51701; 59025; 59409; 85025; 86592; A9270-GY; C1758; J3490; J7120; J7999